=== PATIENT | male | born 1965 | race Caucasian/White ===

== ENCOUNTER 2021-05-19 16:21 | Outpatient (CLI) | payer OTHER, SELFPAY ==
[2021-05-19 17:54] LABS: Hematocrit 43.6 % (40-54); Mean Corp Hgb Conc 32.1 g/dL (32-36); Mean Corpuscular Hgb 29.4 pg (27.0-32.0); Mean Corpuscular Volume 91.6 fL (80-94); Mean Platelet Vol. 10.1 fl (6.2-12.0); Platelet Count 372 K/mm3 (150-450); RBC Distribution Width CV 13.2 % (11.6-14.6); RBC Distribution Width SD 44.6 fl (35.1-43.9); Red Blood Count 4.76 M/mm3 (4.6-6.2); White Blood Count 8.5 K/mm3 (4.4-11.0)
[2021-05-19 18:16] LABS: Ferritin 16 ng/mL (26-388); Iron 41 ug/dL (65-175)
== END 2021-05-19 23:59 | disposition home or self-care (01) ==
LOC: MTLAB 16:28
PROVIDERS: PCP Student in an Organized Health Care Education/Training Program; Referring Provider Internal Medicine Gastroenterology; Visit Provider Internal Medicine Gastroenterology
DX: D50.9 Iron deficiency anemia, unspecified (principal)
CPT/HCPCS: 36415; 82728; 83540; 85027

== ENCOUNTER 2021-05-28 06:04 | Outpatient (CLI) | payer OTHER, SELFPAY | END 2021-05-28 23:59 | disposition home or self-care (01) | LOC: PSN 06:05 | PROVIDERS: PCP Student in an Organized Health Care Education/Training Program; Referring Provider Internal Medicine Gastroenterology; Visit Provider Internal Medicine Gastroenterology | DX: Z20.822 Contact with and (suspected) exposure to COVID-19 (principal) | CPT/HCPCS: 87426; C9803 ==